=== PATIENT | female | born 1950 | race Caucasian/White ===

== ENCOUNTER 2017-08-25 07:57 | Outpatient (CLI) | payer OTHER | END 2017-08-25 08:01 | disposition home or self-care (01) | LOC: SONOGRAMA 07:57 | DX: E04.1 Nontoxic single thyroid nodule (principal) ==

== ENCOUNTER 2020-04-22 08:44 | Emergency (ER) | payer OTHER ==
[~2020-04-22] VITALS: Ht 154.9 cm; Wt 90.7 kg
[2020-04-22] MEDS ORDERED: LEXAPRO20 MG PO (08:51)
[2020-04-22] MEDS ORDERED: PROTONIX40 M1 PO (08:53)
[2020-04-22] MEDS ORDERED: COZAAR50 MG PO (08:53)
[2020-04-22] MEDS ORDERED: SYMBICORT 16010.2 GM IH (08:54)
[2020-04-22] MEDS ORDERED: ZYRTEC10 M3 PO (08:55)
[2020-04-22] MEDS ORDERED: SINGULAIR4 M1 PO (08:55)
[2020-04-22] MEDS ORDERED: PEPCID AC20 MG PO (15:59)
[2020-04-22] MEDS ORDERED: DECADRON4 MG PO (15:59)
[2020-04-22] MEDS ORDERED: LEVSIN/SL0.125 MG SL (15:59)
[2020-04-22] MEDS ORDERED: INTESTINEX680 M1 PO (15:59)
[2020-04-22] MEDS ORDERED: ULTRACET PO (15:59)
== END 2020-04-22 18:23 ==
LOC: ER 08:44
DX: K57.90 Diverticulosis of intestine, part unspecified, without perforation or abscess without bleeding (principal); R10.12 Left upper quadrant pain; R10.33 Periumbilical pain

== ENCOUNTER 2020-05-28 05:35 | Day surgery (SDC) | payer OTHER ==
[~2020-05-28 05:35] MED LIST: COZAAR50 MG PO; DECADRON4 MG PO; INTESTINEX680 M1 PO; LEVSIN/SL0.125 MG SL; LEXAPRO20 MG PO; PEPCID AC20 MG PO; PROTONIX40 M1 PO; SINGULAIR4 M1 PO; SYMBICORT 16010.2 GM IH; ULTRACET PO; ZYRTEC10 M3 PO
[2020-05-28] MEDS ORDERED: PERCOCET 5-3251 EACH PO (12:57)
[2020-05-28] MEDS ORDERED: NEURONTIN600 M1 PO (12:58)
[2020-05-28] MEDS ORDERED: COLACE100 MG PO (12:58)
== END 2020-05-28 15:01 | disposition home or self-care (01) ==
LOC: CIR.AMB 05:35
PROVIDERS: ATTEND Surgery
DX: K43.0 Incisional hernia with obstruction, without gangrene (principal); D17.1 Benign lipomatous neoplasm of skin and subcutaneous tissue of trunk; Z20.828 Contact with and (suspected) exposure to other viral communicable diseases

== ENCOUNTER 2022-10-08 06:00 | Day surgery (SDC) | payer OTHER ==
[~2022-10-08] VITALS: Ht 154.9 cm; Wt 90.3 kg
[~2022-10-08 06:00] MED LIST changes: +COLACE100 MG PO; +COZAAR100 MG PO; +LEVALBUTEROL TA15 GM IH; +NEURONTIN600 M1 PO; +PERCOCET 5-3251 EACH PO; +SPIRIVA RESPIMAT4 GM IH
== END 2022-10-08 21:00 | disposition home or self-care (01) ==
LOC: CIR.AMB 06:00
PROVIDERS: ATTEND Surgery
DX: D05.12 Intraductal carcinoma in situ of left breast (principal); C77.3 Secondary and unspecified malignant neoplasm of axilla and upper limb lymph nodes; R59.0 Localized enlarged lymph nodes; Z20.822 Contact with and (suspected) exposure to COVID-19; I10 Essential (primary) hypertension; Z88.6 Allergy status to analgesic agent
CPT/HCPCS: 19301; 38525; 19281; A9541; L8699

== ENCOUNTER 2022-10-11 12:24 | Emergency (ER) | payer OTHER ==
[~2022-10-11] VITALS: Ht 154.9 cm; Wt 90.3 kg
[2022-10-11] MEDS ORDERED: TRAZODONE HCL100 MG (13:39)
== END 2022-10-11 18:02 | disposition home or self-care (01) ==
LOC: ER 12:24
DX: R60.0 Localized edema (principal); R17 Unspecified jaundice; I10 Essential (primary) hypertension; C50.912 Malignant neoplasm of unspecified site of left female breast; Z88.6 Allergy status to analgesic agent

== ENCOUNTER 2023-01-06 12:54 | Emergency (ER) | payer OTHER ==
[~2023-01-06] VITALS: Ht 154.9 cm; Wt 90.3 kg
[~2023-01-06 12:54] MED LIST changes: +TRAZODONE HCL100 MG
[2023-01-06] MEDS ORDERED: LIPITOR40 M1 PO (13:53)
[2023-01-06] MEDS ORDERED: LEXAPRO5 MG PO (13:54)
[2023-01-06] MEDS ORDERED: ACID CONTROLLER20 MG PO (13:54)
[2023-01-06] MEDS ORDERED: BUSPIRONE HCL5 MG PO (13:55)
[2023-01-06] MEDS ORDERED: ANASTROZOLE1 MG PO (13:55)
[2023-01-06] MEDS ORDERED: SYMBICORT 16010.2 GM (13:56)
== END 2023-01-06 17:30 | disposition home or self-care (01) ==
LOC: ER 12:54
DX: J45.909 Unspecified asthma, uncomplicated (principal); C50.912 Malignant neoplasm of unspecified site of left female breast; Z88.6 Allergy status to analgesic agent

== ENCOUNTER 2023-01-06 22:53 | Emergency (ER) | payer OTHER ==
[~2023-01-06] VITALS: Ht 165.1 cm; Wt 68.0 kg
[~2023-01-06 22:53] MED LIST changes: +ACID CONTROLLER20 MG PO; +ANASTROZOLE1 MG PO; +BUSPIRONE HCL5 MG PO; +LEXAPRO5 MG PO; +LIPITOR40 M1 PO; +SYMBICORT 16010.2 GM
== END 2023-01-07 00:48 | disposition home or self-care (01) ==
LOC: ER 22:53
DX: J44.1 Chronic obstructive pulmonary disease with (acute) exacerbation (principal); J45.909 Unspecified asthma, uncomplicated; Z88.6 Allergy status to analgesic agent

== ENCOUNTER 2025-02-02 10:59 | Emergency (ER) | payer OTHER ==
[~2025-02-02] VITALS: Ht 154.9 cm; Wt 90.3 kg
[2025-02-02] MEDS ORDERED: BUDESONIDE 0.5 MG/2 ML AMPUL.NEB IH STA (12:05)
[2025-02-02] MEDS ORDERED: METHYLPREDNISOLONE SOD SUCC 40 MG VIAL IV STA (12:05)
[2025-02-02] MEDS ORDERED: ALBUTEROL SULFATE 3 ML/2.5 MG AMPUL.NEB IH SCH (12:15)
[2025-02-02] MEDS ORDERED: METHYLPREDNISOLONE SOD SUCC 40 MG VIAL ONE (12:25)
[2025-02-02 12:35] LABS: BASO % 0.3 % (0.1-1.2); EOS # 0.03 (0.04-0.54); EOS % 0.5 % (0.7-7.0); LYMPH # 0.40 (1.18-3.74); LYMPH % 6.6 % (19.3-53.1); MEAN PLATELET VOLUME 10.80 fl (9.4-12.4); MONO # 0.29 (0.24-0.82); MONO % 4.8 % (4.7-12.5); NEUT # 5.27 (1.56-6.13); NEUT % 86.3 % (34.0-71.1); RED CELL DISTRIBUTION WIDTH 15.3 % (11.6-14.4)
[2025-02-02] MEDS ORDERED: BUDESONIDE 0.5 MG/2 ML AMPUL.NEB IH ONE (12:36)
[2025-02-02] MEDS ORDERED: ALBUTEROL SULFATE 3 ML/2.5 MG AMPUL.NEB IH ONE ×2 (12:37→15:30)
[2025-02-02 13:04] LABS: ABG PH 7.406 (7.35-7.45); ABG PO2 76.0 mmHg (80-100); BICARBONATE 22.4 mmol/l (23-25); o2 21 %
[2025-02-02 13:06] LABS: COVID-19 AG NEGATIVE (NEGATIVE)
== END 2025-02-02 17:56 | disposition home or self-care (01) ==
LOC: ER 10:59
PROVIDERS: Emergency Medicine
DX: J45.901 Unspecified asthma with (acute) exacerbation (principal); Z20.822 Contact with and (suspected) exposure to COVID-19; Z88.6 Allergy status to analgesic agent